=== PATIENT | female | born 1980 | race Caucasian/White ===

== ENCOUNTER 2016-10-15 20:42 | Emergency (ER) | payer OTHER ==
[2016-10-15 22:42] VITALS: BP 114/74
== END 2016-10-15 22:42 | disposition home or self-care (01) ==
LOC: ED 20:42
DX: M77.9 Enthesopathy, unspecified (principal); Z79.899 Other long term (current) drug therapy
CPT/HCPCS: Q0092

== ENCOUNTER 2017-11-17 07:13 | Emergency (ER) | payer OTHER ==
[~2017-11-17] VITALS: Ht 157.5 cm; Wt 65.8 kg
[2017-11-17 07:21] VITALS: Ht 157.5 cm; Wt 65.8 kg
[2017-11-17 08:00] LABS: PLATELET COUNT 243 x10^3mcL (130-400); RED CELL DISTRIBUTION WIDTH 12.6 % (11.5-14.5)
[2017-11-17 08:12] LABS: CALCIUM 7.9 mg/dL (8.5-10.1); CHLORIDE SERUM 106 mmol/L (98-107); CREATININE SERUM 0.6 mg/dL (0.6-1.0); GFR1 > 60 mL/min; GLUCOSE SERUM 79 mg/dL (74-106); POTASSIUM SERUM 3.7 mmol/L (3.5-5.1); SODIUM SERUM 140 mmol/L (136-145)
[2017-11-17 08:16] LABS: ALBUMIN 3.5 g/dL (3.4-5.0); ALKALINE PHOSPHATASE 93 U/L (46-116); ALT/SGPT 16 U/L (14-59); AST/SGOT 10 U/L (15-37); BILIRUBIN TOTAL 0.8 mg/dL (0.20-1.00); HDL CHOLESTEROL 58 mg/dL (40-60); LIPASE 156 IU/L (73-393); TOTAL PROTEIN, SERUM 6.9 g/dL (6.4-8.2)
[2017-11-17 08:25] LABS: FREE T4 0.97 ng/dL (0.76-1.46); FREE THYROXINE INDEX 2.3 ug/dL (1.4-4.5); T4(THYROXINE) 6.8 ug/dL (4.7-13.3)
[2017-11-17 08:31] LABS: AMPHETAMINE QUAL UR POSITIVE (See below)
[2017-11-17 08:37] VITALS: BP 128/72
[2017-11-17 08:57] LABS: CHOLESTEROL 126 mg/dL (<200); CHOLESTEROL/HDL RATIO 2.2; TRIGLYCERIDES 22 mg/dL (<150)
== END 2017-11-17 08:55 | disposition home or self-care (01) ==
LOC: ED 07:13
PROVIDERS: Specialist
DX: M79.622 Pain in left upper arm (principal); F15.20 Other stimulant dependence, uncomplicated; Z90.49 Acquired absence of other specified parts of digestive tract
CPT/HCPCS: 36415; 83880; 84439; J1885; Q0162

== ENCOUNTER 2018-10-21 21:42 | Emergency (ER) | payer OTHER | END 2018-10-21 22:14 | disposition left against medical advice (07) | LOC: ED 21:42 | DX: Z53.21 Procedure and treatment not carried out due to patient leaving prior to being seen by health care provider (principal) ==

== ENCOUNTER 2018-12-23 16:51 | Emergency (ER) | payer OTHER ==
[~2018-12-23] VITALS: Ht 157.5 cm; Wt 64.4 kg
[2018-12-23 16:52] VITALS: BP 131/77; Ht 157.5 cm; Wt 64.4 kg
== END 2018-12-23 19:59 | disposition left against medical advice (07) ==
LOC: ED 16:51
DX: Z53.21 Procedure and treatment not carried out due to patient leaving prior to being seen by health care provider (principal)

== ENCOUNTER 2019-01-14 15:15 | Emergency (ER) | payer OTHER ==
[~2019-01-14] VITALS: Ht 157.5 cm; Wt 59.4 kg
[2019-01-14 15:21] VITALS: BP 106/57; Ht 157.5 cm; Wt 59.4 kg
== END 2019-01-14 16:47 | disposition home or self-care (01) ==
LOC: ED 15:15
DX: H65.93 Unspecified nonsuppurative otitis media, bilateral (principal); F17.210 Nicotine dependence, cigarettes, uncomplicated; Z98.890 Other specified postprocedural states
CPT/HCPCS: 99406

== ENCOUNTER 2019-03-09 05:53 | Emergency (ER) | payer OTHER ==
[~2019-03-09] VITALS: Ht 157.5 cm; Wt 60.0 kg
[2019-03-09 06:02] VITALS: Ht 157.5 cm; Wt 60.0 kg
[2019-03-09 06:31] VITALS: BP 126/88
== END 2019-03-09 06:31 | disposition home or self-care (01) ==
LOC: ED 05:53
DX: S60.221A Contusion of right hand, initial encounter (principal); Z98.890 Other specified postprocedural states; W22.8XXA Striking against or struck by other objects, initial encounter; Y93.89 Activity, other specified; Y92.89 Other specified places as the place of occurrence of the external cause; Y99.8 Other external cause status

== ENCOUNTER 2019-06-22 18:08 | Emergency (ER) | payer SELFPAY ==
[~2019-06-22] VITALS: Ht 162.6 cm; Wt 68.5 kg
[2019-06-22 18:11] VITALS: BP 121/76; Ht 162.6 cm; Wt 68.5 kg
== END 2019-06-22 18:21 | disposition home or self-care (01) ==
LOC: ED 18:08
DX: J06.9 Acute upper respiratory infection, unspecified (principal)